=== PATIENT | male | born 1965 | race Caucasian/White ===

== ENCOUNTER 2017-05-11 00:23 | Emergency (ER) | payer BC, OTHER ==
[2017-05-11] MEDS ORDERED: Aspirin 81 MG Tab.Chew PO ONE (00:25)
[2017-05-11] MEDS ORDERED: Sodium Chloride 0.9% 1,000 ML IV ONE (00:25)
--- NOTE | 2017-05-11 00:27 | EDM.PDOC ---
ED HPI GENERAL MEDICAL PROBLEM - General Chief Complaint: Chest Pain Stated Complaint: CHEST PAIN AND FACE TINGLING Time Seen by Provider: 05/11/17 00:26 Source of Information: Reports: Patient - History of Present Illness INITIAL COMMENTS - FREE TEXT/NARRATIVE: HISTORY AND PHYSICAL: History of present illness: [Patient presents with chest pain throughout the day maximally 5 out of 10, at current he has 0 out of 10 pain he came at his 's urging. 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 Later on after lunch he again had some chest discomfort and took Tums this seemed to alleviate the discomfort. There is no association of pain with exertion no association with shortness of breath or diaphoresis tonight he was watching TV and noticed some left facial tingling as well as a tingle in the left arm and hence he presents as such He has not seen a primary care provider in some time he denies chronic illness disease or medications ] Review of systems: As per history of present illness and below otherwise all systems reviewed and negative. Past medical history: As per history of present illness and as reviewed below otherwise noncontributory. Surgical history: As per history of present illness and as reviewed below otherwise noncontributory. Social history: No reported history of drug or alcohol abuse. Family history: As per history of present illness and as reviewed below otherwise noncontributory. Physical exam: HEENT: Atraumatic, normocephalic, pupils reactive, negative for conjunctival pallor or scleral icterus, mucous membranes moist, throat clear, neck supple, nontender, trachea midline. Lungs: Clear to auscultation, breath sounds equal bilaterally, chest nontender. Heart: S1S2, regular, negative for clicks, rubs, or JVD. Abdomen: Soft, nondistended, nontender. Negative for masses or hepatosplenomegaly. Negative for costovertebral tenderness. Pelvis: Stable nontender. Genitourinary: Deferred. Rectal: Deferred. Extremities: Atraumatic, negative for cords or calf pain. Neurovascular unremarkable. Neuro: Awake, alert, oriented. Cranial nerves II through XII unremarkable. Cerebellum unremarkable. Motor and sensory unremarkable throughout. Exam nonfocal. Diagnostics: []Lab as below EKG Chest 1 view Therapeutics: []Saline bolus Aspirin 324 mg chewable 0.4 sublingual nitroglycerin ordered per protocol but not provided as 0 out of 10 pain Patient is offered observation admission to follow cardiac enzymes he refuses at this time Impression: []Chest pain resolved Facial tingling resolved GERD symptoms Definitive disposition and diagnosis as appropriate pending reevaluation and review of above. Left Upper Chest Pain Score (Numeric/FACES): 1 - Related Data Allergies Allergy/AdvReac Type Severity Reaction Status Date / Time No Known Allergies Allergy Verified 05/11/17 00:30 Home Meds: Home Meds . [No Known Home Meds] 05/11/17 [History] ED ROS GENERAL - Review of Systems Review Of Systems: ROS reveals no pertinent complaints other than HPI. ED EXAM, GENERAL - Physical Exam Exam: See Below Course - Vital Signs Last Recorded V/S: Last Vital Signs Temp 98.6 F 05/11/17 00:26 Pulse 107 H 05/11/17 00:26 Resp 12 05/11/17 00:26 BP 147/75 H 05/11/17 00:26 Pulse Ox 95 05/11/17 00:26 - Orders/Labs/Meds Orders: Active Orders 24 hr Category Date Time Status EKG Documentation Completion [RC] STAT Care 05/11/17 00:34 Active Chest 1V Frontal [CR] Stat Exams 05/11/17 00:25 Taken Nitroglycerin [Nitrostat] Med 05/11/17 00:31 Active 0.4 mg SL Q5M PRN Medication Orders Nitroglycerin (Nitrostat) 0.4 mg SL Q5M PRN PRN Reason: Chest Pain Labs: Laboratory Tests 05/11/17 05/11/17 05/11/17 Range/Units 00:40 00:40 01:00 WBC 5.53 (4.0-11.0) K/uL RBC 5.47 (4.50-5.90) M/uL Hgb 15.7 (13.0-17.0) g/dL Hct 47.0 (38.0-50.0) % MCV 85.9 (80.0-98.0) fL MCH 28.7 (27.0-32.0) pg MCHC 33.4 (31.0-37.0) g/dL RDW Std Deviation 41.4 (28.0-62.0) fl RDW Coeff of Deysi 13 (11.0-15.0) % Plt Count 158 (150-400) K/uL MPV 11.60 (7.40-12.00) fL Neut % (Auto) 54.3 (48.0-80.0) % Lymph % (Auto) 32.0 (16.0-40.0) % [place] % (Auto) 9.8 (0.0-15.0) % Eos % (Auto) 3.4 (0.0-7.0) % Baso % (Auto) 0.5 (0.0-1.5) % Neut # (Auto) 3.0 (1.4-5.7) K/uL Lymph # (Auto) 1.8 (0.6-2.4) K/uL [place] # (Auto) 0.5 (0.0-0.8) K/uL Eos # (Auto) 0.2 (0.0-0.7) K/uL Baso # (Auto) 0.0 (0.0-0.1) K/uL Nucleated RBC % 0.0 /100WBC Nucleated RBCs # 0 K/uL Sodium 142 (136-146) mmol/L Potassium 4.0 (3.5-5.1) mmol/L Chloride 109 (98-110) mmol/L Carbon Dioxide 23 (21-31) mmol/L BUN 24 H (6.0-23.0) mg/dL Creatinine 0.9 (0.6-1.5) mg/dL Est Cr Clr Drug Dosing 96.01 mL/min Estimated GFR (MDRD) > 60.0 ml/min Glucose 163 H (60-110) mg/dL Calcium 9.1 (8.8-10.8) mg/dL Total Bilirubin 1.1 (0.1-1.5) mg/dL AST 21 (5-40) IU/L ALT 30 (8-54) IU/L Alkaline Phosphatase 80 (40-150) Troponin I < 0.10 (0.0-0.29) NG/ML Total Protein 7.1 (6.0-8.0) g/dL Albumin 4.1 (3.5-5.0) g/dL Globulin 3.0 (2.0-3.5) g/dL Albumin/Globulin Ratio 1.4 (1.3-2.8) Amylase 54 (10-90) U/L Lipase 41 (7-80) U/L Urine Color YELLOW Urine Appearance CLEAR Urine pH 6.0 (5.0-8.0) Ur Specific [place] 1.020 (1.001-1.035) Urine Protein NEGATIVE (NEGATIVE) mg/dL Urine Glucose (UA) NEGATIVE (NEGATIVE) mg/dL Urine Ketones TRACE H (NEGATIVE) mg/dL Urine Occult Blood SMALL H (NEGATIVE) Urine Nitrite NEGATIVE (NEGATIVE) Urine Bilirubin NEGATIVE (NEGATIVE) Urine Urobilinogen 1.0 (<2.0) EU/dL Ur Leukocyte Esterase NEGATIVE (NEGATIVE) Urine RBC 0-2 (0-2/HPF) Urine WBC 0-1 (0-5/HPF) Ur Epithelial Cells NOT SEEN (NONE-FEW) Urine Bacteria RARE (NEGATIVE) Meds: Medications Generic Name Dose Route Start Last Admin Trade Name Freq PRN Reason Stop Dose Admin Nitroglycerin 0.4 mg 05/11/17 00:31 Nitrostat SL Q5M PRN Chest Pain Discontinued Medications Generic Name Dose Route Start Last Admin Trade Name Freq PRN Reason Stop Dose Admin Aspirin 324 mg 05/11/17 00:25 05/11/17 00:43 Aspirin PO 05/11/17 00:26 324 mg ONETIME ONE Administration Sodium Chloride 1,000 mls @ 999 mls/hr 05/11/17 00:25 Normal Saline IV 05/11/17 01:25 STAT ONE Departure - Departure Time of Disposition: 01:32 Disposition: Home, Self-Care 01 Condition: Good Clinical Impression: Atypical chest pain - Discharge Information Referrals: PCP,None [Primary Care Provider] - Forms: ED Department Discharge Additional Instructions: Return if symptoms persist or worsen Follow-up with primary care provider within 2 weeks, consider cardiac stress testing with your provider The following information is given to patients seen in the emergency department who are being discharged to home. This information is to outline your options for follow-up care. We provide all patients seen in our emergency department with a follow-up referral. The need for follow-up, as well as the timing and circumstances, are variable depending upon the specifics of your emergency department visit. If you don't have a primary care physician on staff, we will provide you with a referral. We always advise you to contact your personal physician following an emergency department visit to inform them of the circumstance of the visit and for follow-up with them and/or the need for any referrals to a consulting specialist. The emergency department will also refer you to a specialist when appropriate. This referral assures that you have the opportunity for follow-up care with a specialist. All of these measure are taken in an effort to provide you with optimal care, which includes your follow-up. Under all circumstances we always encourage you to contact your private physician who remains a resource for coordinating your care. When calling for follow-up care, please make the office aware that this follow-up is from your recent emergency room visit. If for any reason you are refused follow-up, please contact the [facility] emergency department at and asked to speak to the emergency department charge nurse. - My Orders Last 24 Hours: My Active Orders 05/11/17 00:25 Chest 1V Frontal [CR] Stat 05/11/17 00:31 Nitroglycerin [Nitrostat] 0.4 mg SL Q5M PRN 05/11/17 00:34 EKG Documentation Completion [RC] STAT - Assessment/Plan Last 24 Hours: My Active Orders 05/11/17 00:25 Chest 1V Frontal [CR] Stat 05/11/17 00:31 Nitroglycerin [Nitrostat] 0.4 mg SL Q5M PRN 05/11/17 00:34 EKG Documentation Completion [RC] STAT
[2017-05-11] MEDS ORDERED: Nitroglycerin 0.4 MG Tab.SL SL PRN (00:31)
[2017-05-11 01:12] LABS: CHLORIDE,CL 109 mmol/L (98-110); SODIUM,NA 142 mmol/L (136-146)
--- NOTE | 2017-05-12 15:16 | CR ---
EXAM DATE: 05/11/17 PATIENT'S AGE: 51 Patient: DI ARNDT Facility: [place], [place] Site . Site : 1965 Study: XRay Chest [id number] 12:42:36 AM Ordering Physician: Doctor Goodman Final Report: INDICATION: Chest pain. TECHNIQUE: Chest radiograph 1 view COMPARISON: None FINDINGS: Cardiovascular and mediastinum: The heart silhouette is normal in size and morphology. The mediastinum is normal in appearance. Lungs and pleural spaces: Both lungs are unremarkable in appearance. No sign of pleural effusion seen. No pneumothorax is identified. Bones and soft tissues: No significant findings. IMPRESSION: 1. No acute cardiopulmonary disease is seen. Dictated by Kumar Escobedo MD @ 05/11/2017 1:02:00 AM Dictated by: Kumar Escobedo MD @ 05/11/2017 01:02:05 (Electronic Signature) Report Signed by Proxy. ELIAS
== END 2017-05-11 01:51 | disposition home or self-care (01) ==
LOC: MW.ED 00:23
DX: R07.89 Other chest pain (principal)
CPT/HCPCS: 71010; 80053; 81001; 82150; 83690; 84484; 85025; 93005; 96360; 99285; A9270; J7040; 99283

== ENCOUNTER 2017-05-12 15:55 | Emergency (ER) | payer BC ==
--- NOTE | 2017-05-12 16:06 | EDM.PDOC ---
ED HPI GENERAL MEDICAL PROBLEM - General Chief Complaint: Chest Pain Stated Complaint: CHEST PAIN Time Seen by Provider: 05/12/17 16:02 Source of Information: Reports: Patient History Limitations: Reports: No Limitations - History of Present Illness INITIAL COMMENTS - FREE TEXT/NARRATIVE: History of present illness: []Patient returns with another episode of chest pain that began around 1:30 this afternoon when his left chest while he was working described as burning and tingling going up his left neck. He denies any shortness of breath, sweating , dizziness or lightheadedness or syncope. Pain is noted to be 3/10 at its worst and report is a 1/10 here in the ED. Review of systems: As per history of present illness and below otherwise all systems reviewed and negative. Past medical history: As per history of present illness and as reviewed below otherwise noncontributory. Surgical history: As per history of present illness and as reviewed below otherwise noncontributory. Social history: No reported history of drug or alcohol abuse. Family history: As per history of present illness and as reviewed below otherwise noncontributory. Physical exam: General: Well developed, well nourished in NAD HEENT: Atraumatic, normocephalic, pupils reactive, negative for conjunctival pallor or scleral icterus, mucous membranes moist, throat clear, neck supple, nontender, trachea midline. Lungs: Clear to auscultation, breath sounds equal bilaterally, chest nontender. Heart: S1S2, regular, negative for clicks, rubs, or JVD. Abdomen: Soft, nondistended, nontender. Negative for masses or hepatosplenomegaly. Negative for costovertebral tenderness. Pelvis: Stable nontender. Genitourinary: Deferred. Rectal: Deferred. Extremities: Atraumatic, negative for cords or calf pain. Neurovascular unremarkable. Neuro: Awake, alert, oriented. Cranial nerves II through XII unremarkable. Cerebellum unremarkable. Motor and sensory unremarkable throughout. Exam nonfocal. Diagnostics: []Troponin was done all normal Therapeutics: []Aspirin and nitroglycerin given Impression: []Chest pain likely GERD Plan: [] Definitive disposition and diagnosis as appropriate pending reevaluation and review of above. Chest Pain Score (Numeric/FACES): 4 - Related Data Allergies Allergy/AdvReac Type Severity Reaction Status Date / Time No Known Allergies Allergy Verified 05/12/17 15:58 Home Meds: Home Meds . [No Known Home Meds] 05/11/17 [History] Past Medical History - Past Health History Medical/Surgical History: Denies Medical/Surgical History - Infectious Disease History Infectious Disease History: Reports: Chicken Pox - Past Surgical History Musculoskeletal Surgical History: Reports: Other (See Below) Other Musculoskeletal Surgeries/Procedures:: plate in L leg above knee Social & Family History - Family History Family Medical History: Noncontributory - Tobacco Use Smoking Status *Q: Never Smoker Used Tobacco, but Quit: Yes Month Tobacco Last Used: 2014 - Caffeine Use Caffeine Use: Reports: Soda - Recreational Drug Use Recreational Drug Use: No ED ROS GENERAL - Review of Systems Review Of Systems: See Below (See history of present illness) ED EXAM, GENERAL - Physical Exam Exam: See Below (See history of present illness) Course - Vital Signs Last Recorded V/S: Last Vital Signs Temp 99.0 F 05/12/17 15:58 Pulse 83 05/12/17 17:14 Resp 18 05/12/17 17:14 BP 121/71 05/12/17 17:14 Pulse Ox 95 05/12/17 17:14 - Orders/Labs/Meds Orders: Active Orders 24 hr Category Date Time Status Nitroglycerin [Nitrostat] Med 05/12/17 16:27 Active 0.4 mg SL Q5M PRN Sodium Chloride 0.9% [Saline Flush] Med 05/12/17 16:59 Active 10 ml FLUSH ASDIRECTED PRN Sodium Chloride 0.9% [Saline Flush] Med 05/12/17 16:59 Active 2.5 ml FLUSH ASDIRECTED PRN Saline Lock Insert [OM.PC] Stat Oth 05/12/17 16:59 Ordered Medication Orders Nitroglycerin (Nitrostat) 0.4 mg SL Q5M PRN PRN Reason: Chest Pain Last Admin: 05/12/17 17:08 Dose: 0.4 mg Sodium Chloride (Saline Flush) 10 ml FLUSH ASDIRECTED PRN PRN Reason: Keep Vein Open Last Admin: 05/12/17 17:07 Dose: 10 ml Sodium Chloride (Saline Flush) 2.5 ml FLUSH ASDIRECTED PRN PRN Reason: Keep Vein Open Last Admin: 05/12/17 17:08 Dose: 2.5 ml Labs: Laboratory Tests 05/12/17 05/12/17 Range/Units 17:02 17:02 WBC 6.13 (4.0-11.0) K/uL RBC 5.30 (4.50-5.90) M/uL Hgb 15.2 (13.0-17.0) g/dL Hct 45.5 (38.0-50.0) % MCV 85.8 (80.0-98.0) fL MCH 28.7 (27.0-32.0) pg MCHC 33.4 (31.0-37.0) g/dL RDW Std Deviation 41.8 (28.0-62.0) fl RDW Coeff of Deysi 13 (11.0-15.0) % Plt Count 157 (150-400) K/uL MPV 11.70 (7.40-12.00) fL Neut % (Auto) 75.6 (48.0-80.0) % Lymph % (Auto) 16.3 (16.0-40.0) % [place] % (Auto) 7.0 (0.0-15.0) % Eos % (Auto) 0.8 (0.0-7.0) % Baso % (Auto) 0.3 (0.0-1.5) % Neut # (Auto) 4.6 (1.4-5.7) K/uL Lymph # (Auto) 1.0 (0.6-2.4) K/uL [place] # (Auto) 0.4 (0.0-0.8) K/uL Eos # (Auto) 0.1 (0.0-0.7) K/uL Baso # (Auto) 0.0 (0.0-0.1) K/uL Nucleated RBC % 0.0 /100WBC Nucleated RBCs # 0 K/uL Sodium 141 (136-146) mmol/L Potassium 4.1 (3.5-5.1) mmol/L Chloride 109 (98-110) mmol/L Carbon Dioxide 24 (21-31) mmol/L BUN 18 (6.0-23.0) mg/dL Creatinine 0.9 (0.6-1.5) mg/dL Est Cr Clr Drug Dosing TNP Estimated GFR (MDRD) > 60.0 ml/min Glucose 93 (60-110) mg/dL Calcium 9.4 (8.8-10.8) mg/dL Total Bilirubin 1.2 (0.1-1.5) mg/dL AST 19 (5-40) IU/L ALT 27 (8-54) IU/L Alkaline Phosphatase 60 (40-150) Troponin I < 0.10 (0.0-0.29) NG/ML Total Protein 6.9 (6.0-8.0) g/dL Albumin 4.2 (3.5-5.0) g/dL Globulin 2.7 (2.0-3.5) g/dL Albumin/Globulin Ratio 1.56 Meds: Medications Generic Name Dose Route Start Last Admin Trade Name Freq PRN Reason Stop Dose Admin Nitroglycerin 0.4 mg 05/12/17 16:27 05/12/17 17:08 Nitrostat SL 0.4 mg Q5M PRN Administration Chest Pain Sodium Chloride 10 ml 05/12/17 16:59 05/12/17 17:07 Saline Flush FLUSH 10 ml ASDIRECTED PRN Administration Keep Vein Open Sodium Chloride 2.5 ml 05/12/17 16:59 05/12/17 17:08 Saline Flush FLUSH 2.5 ml ASDIRECTED PRN Administration Keep Vein Open Discontinued Medications Generic Name Dose Route Start Last Admin Trade Name Freq PRN Reason Stop Dose Admin Aspirin 324 mg 05/12/17 16:27 05/12/17 17:06 Aspirin PO 05/12/17 16:28 324 mg ONETIME ONE Administration Departure - Departure Time of Disposition: 17:59 Disposition: Home, Self-Care 01 Condition: Good Clinical Impression: Chest pain Qualifiers: Chest pain type: unspecified Qualified Code(s): R07.9 - Chest pain, unspecified Referrals: PCP,None [Primary Care Provider] - Forms: ED Department Discharge Additional Instructions: The following information is given to patients seen in the emergency department who are being discharged to home. This information is to outline your options for follow-up care. We provide all patients seen in our emergency department with a follow-up referral. The need for follow-up, as well as the timing and circumstances, are variable depending upon the specifics of your emergency department visit. If you don't have a primary care physician on staff, we will provide you with a referral. We always advise you to contact your personal physician following an emergency department visit to inform them of the circumstance of the visit and for follow-up with them and/or the need for any referrals to a consulting specialist. The emergency department will also refer you to a specialist when appropriate. This referral assures that you have the opportunity for follow-up care with a specialist. All of these measure are taken in an effort to provide you with optimal care, which includes your follow-up. Under all circumstances we always encourage you to contact your private physician who remains a resource for coordinating your care. When calling for follow-up care, please make the office aware that this follow-up is from your recent emergency room visit. If for any reason you are refused follow-up, please contact the [facility] Emergency Department at and asked to speak to the emergency department charge nurse. Take a baby aspirin daily, trial of Prilosec twice a day for 2 weeks. Follow-up with primary care and/or cardiology. [facility] [address] [place] [id number] [facility] [address] [place]. [place] [address] [place] [id number] [phone] - My Orders Last 24 Hours: My Active Orders 05/12/17 16:27 Nitroglycerin [Nitrostat] 0.4 mg SL Q5M PRN 05/12/17 16:59 Sodium Chloride 0.9% [Saline Flush] 10 ml FLUSH ASDIRECTED PRN Sodium Chloride 0.9% [Saline Flush] 2.5 ml FLUSH ASDIRECTED PRN Saline Lock Insert [OM.PC] Stat - Assessment/Plan Last 24 Hours: My Active Orders 05/12/17 16:27 Nitroglycerin [Nitrostat] 0.4 mg SL Q5M PRN 05/12/17 16:59 Sodium Chloride 0.9% [Saline Flush] 10 ml FLUSH ASDIRECTED PRN Sodium Chloride 0.9% [Saline Flush] 2.5 ml FLUSH ASDIRECTED PRN Saline Lock Insert [OM.PC] Stat
[2017-05-12] MEDS ORDERED: Aspirin 81 MG Tab.Chew PO ONE (16:27)
[2017-05-12] MEDS ORDERED: Nitroglycerin 0.4 MG Tab.SL SL PRN (16:27)
[2017-05-12] MEDS ORDERED: Sodium Chloride 0.9% 10 ML Syringe FLUSH PRN (16:59)
[2017-05-12] MEDS ORDERED: Sodium Chloride 0.9% 2.5 ML Syringe FLUSH PRN (16:59)
[2017-05-12 17:39] LABS: CHLORIDE,CL 109 mmol/L (98-110); SODIUM,NA 141 mmol/L (136-146)
== END 2017-05-12 18:10 | disposition home or self-care (01) ==
LOC: MW.ED 15:55
DX: R07.9 Chest pain, unspecified (principal)
CPT/HCPCS: 36415; 80053; 84484; 85025; 93005; 99285; A9270; 99283

== ENCOUNTER 2017-06-27 09:29 | Day surgery (SDC) | payer BC ==
[~2017-06-27 09:29] MED LIST: Lactated Ringers 1,000 ML IV SCH; Lidocaine 2% 5 ML SDV ONE; Midazolam 1 MG/ML 2 ML SDV ONE; Propofol 200 MG/20 ML SDV ONE; fentaNYL 100 MCG/2 ML SDV ONE
--- NOTE | 2017-06-27 09:55 | PCM.PREANE ---
Preanesthetic Assessment - Anesthesia/Transfusion/Family Hx Anesthesia History: Prior Anesthesia Without Reaction Family History of Anesthesia Reaction: No Transfusion History: No Prior Transfusion(s) Intubation History: Unknown - Review of Systems General: No Symptoms Pulmonary: No Symptoms Cardiovascular: No Symptoms Gastrointestinal: Abdominal Pain Neurological: No Symptoms Other: Reports: None - Physical Assessment Height: 1.75 m Weight: 114.759 kg ASA Class: 2 Mental Status: Alert & Oriented x3 Airway Class: Mallampati = 2 Dentition: Reports: Normal Dentition Thyro-Mental Finger Breadths: 3 Mouth Opening Finger Breadths: 3 ROM/Head Extension: Full Lungs: Clear to Auscultation, Normal Respiratory Effort Cardiovascular: Regular Rate, Regular Rhythm - Allergies Allergies/Adverse Reactions: Allergies Allergy/AdvReac Type Severity Reaction Status Date / Time No Known Allergies Allergy Verified 05/12/17 15:58 - Blood Blood Available: No - Anesthesia Plan Pre-Op Medication Ordered: None - Acknowledgements Anesthesia Type Planned: MAC Pt an Appropriate Candidate for the Planned Anesthesia: Yes Alternatives and Risks of Anesthesia Discussed w Pt/Guardian: Yes Pt/Guardian Understands and Agrees with Anesthesia Plan: Yes PreAnesthesia Questionnaire - Past Health History Medical/Surgical History: Denies Medical/Surgical History HEENT History: Reports: Other (See Below) Other HEENT History: wears glasses Cardiovascular History: Reports: None, Other (See Below) (coronary angiogram 11/23 was normal) Respiratory History: Reports: None Gastrointestinal History: Reports: Other (See Below) Other Gastrointestinal History: epigastric pain Musculoskeletal History: Reports: Fracture Endocrine/Metabolic History: Reports: Obesity/BMI 30+ - Infectious Disease History Infectious Disease History: Reports: Chicken Pox - Past Surgical History Head Surgeries/Procedures: Reports: None Cardiovascular Surgical History: Reports: Other (See Below) Other Cardiovascular Surgeries/Procedures: coronary angiogram, neg results Musculoskeletal Surgical History: Reports: Other (See Below) Other Musculoskeletal Surgeries/Procedures:: plate in L leg above knee - SUBSTANCE USE Smoking Status *Q: Never Smoker (quit chewing 2 years ago) Tobacco Use Within Last Twelve Months: Snuff/Dip Recreational Drug Use History: No - HOME MEDS Home Medications: Home Meds Nitroglycerin 0.4 mg SL ASDIRECTED PRN #1 bottle 05/12/17 [Rx] Omeprazole 20 mg PO DAILY 06/24/17 [History] - CURRENT (IN HOUSE) MEDS Current Meds: Current Medications Lactated Ringer's (Ringers, Lactated) 1,000 mls @ 125 mls/hr IV ASDIRECTED FRANCES Discontinued Medications Fentanyl (Sublimaze) Confirm Administered Dose 100 mcg .ROUTE .STK-MED ONE Stop: 06/27/17 08:28 Lidocaine (Xylocaine-Mpf 2%) Confirm Administered Dose 5 ml .ROUTE .STK-MED ONE Stop: 06/27/17 08:28 Midazolam HCl (Versed 1 Mg/Ml) Confirm Administered Dose 2 mg .ROUTE .STK-MED ONE Stop: 06/27/17 08:28 Propofol (Diprivan 20 Ml) Confirm Administered Dose 400 mg .ROUTE .STK-MED ONE Stop: 06/27/17 08:28
[2017-06-27] MEDS ORDERED: Propofol 200 MG/20 ML SDV ONE (11:36)
[2017-06-27] MEDS ORDERED: Lactated Ringers 1,000 ML IV SCH (12:00)
--- NOTE | 2017-06-27 12:04 | PCM.OPNOTE ---
- General Post-Op/Procedure Note Date of Surgery/Procedure: 06/27/17 Operative Procedure(s): Esophagogastroduodenoscopy with biopsy. Colonoscopy with cold transverse colon and descending colon, polypectomies. Pre Op Diagnosis: Epigastric pain. Desire for colorectal cancer screening. Post-Op Diagnosis: Mild gastritis. Transverse and descending colon polyps. Sigmoid diverticulosis. Anesthesia Technique: MAC (ASA II) Primary Surgeon: Endy Haq Condition: Good Free Text/Narrative:: Dictation [id number] CPT CODE 11064/[id number]
--- NOTE | 2017-06-27 12:13 | PCM.POSTAN ---
POST ANESTHESIA ASSESSMENT - MENTAL STATUS Mental Status: Alert, Oriented - RESPIRATORY Respiratory Status: Respiratory Rate WNL, Airway Patent, O2 Saturation Stable - CARDIOVASCULAR CV Status: Pulse Rate WNL, Blood Pressure Stable - GASTROINTESTINAL GI Status: No Symptoms - POST OP HYDRATION Hydration Status: Adequate & Stable
--- NOTE | 2017-06-27 12:13 | PCM48HPAN ---
Post Anesthesia Note - EVALUATION WITHIN 48HRS OF ANESTHETIC Vital Signs in Normal Range: Yes Patient Participated in Evaluation: Yes Respiratory Function Stable: Yes Airway Patent: Yes Cardiovascular Function Stable: Yes Hydration Status Stable: Yes Pain Control Satisfactory: Yes Nausea and Vomiting Control Satisfactory: Yes Mental Status Recovered: Yes
--- NOTE | 2017-06-27 13:13 | OR ---
SURGEON: Endy Haq M.D. DATE OF PROCEDURE: 06/27/2017 OPERATION PERFORMED: Esophagogastroduodenoscopy with biopsy. ANESTHESIA: MAC. ASA CLASSIFICATION: II. PREOPERATIVE DIAGNOSIS: Left-sided abdominal pain. POSTOPERATIVE DIAGNOSIS: Mild gastritis. DESCRIPTION OF PROCEDURE: The patient was taken to the endoscopy room, positioned on the endoscopy table in the supine position. Time-out was called for appropriate identification of the patient and procedure. Monitored anesthesia care was provided. A bite block was placed between the patient's teeth. The gastroscope was inserted through the bite block into the oropharynx and advanced without difficulty through the esophagus and stomach into the duodenum where examination was carried out in a retrograde fashion. The duodenum shows no acute inflammatory changes or ulcerations. The stomach does show a mild gastritis. No acute ulcerations were noted. Biopsies of the antrum were obtained to look for the presence of Helicobacter pylori. The gastroscope was retroflexed to visualize the proximal stomach. No significant hiatal hernia was noted. No polyps were encountered in the stomach and there were no ulcerations noted proximally. The gastroscope was then straightened and slowly withdrawn aspirating the stomach as the scope was removed. The greater and lesser curvatures were carefully visualized. No lesions were identified. The GE junction was well defined and shows no acute inflammatory changes. The esophagus demonstrates good contractility. No mid or proximal lesions were identified. The vocal cords were visualized as the scope was withdrawn and noted to move symmetrically. The gastroscope was then removed with the patient having tolerated this portion of the procedure well. Following colonoscopy, he was taken to recovery room in stable condition. SANDRA / LIVIA /[id number]
--- NOTE | 2017-06-27 16:43 | OR ---
SURGEON: Endy Haq M.D. DATE OF PROCEDURE: 06/27/2017 OPERATION PERFORMED: Colonoscopy with cold transverse colon and descending colon polypectomy. ANESTHESIA: MAC. ASA CLASSIFICATION: II. PREOPERATIVE DIAGNOSIS: Desire for colorectal cancer screening. POSTOPERATIVE DIAGNOSES: 1. Transverse colon polyp. 2. Descending colon polyp. 3. Sigmoid diverticulosis. DESCRIPTION OF PROCEDURE: With the patient having completed esophagogastroduodenoscopy, he was now positioned in the left lateral decubitus position. The colonoscope was inserted into the rectum and advanced with minimal difficulty to the cecum, where the colonoscope was retroflexed to visualize the ascending colon from below. The colonoscope was then straightened and slowly withdrawn. The cecum, ascending colon, hepatic flexure, proximal mid transverse colon showed no tumors, polyps, diverticula, or angiodysplastic changes. One small polyp was encountered in the distal transverse colon and removed with the cold biopsy forceps. A second polyp was encountered just distal to the splenic flexure and also removed with the cold biopsy forceps. The remainder of the descending colon showed no tumors, polyps, diverticula, or angiodysplastic changes. The sigmoid colon demonstrates numerous small diverticula. No stricture, spasm, or bleeding was noted. Once the colonoscope was withdrawn to the rectum, it was retroflexed to visualize the anal orifice from above. No tumors or polyps were seen and there were no acute hemorrhoidal changes. The colonoscope was then straightened, the rectum aspirated, and the colonoscope removed. The patient tolerated the procedure well and was taken to recovery room in stable condition. SANDRA / LIVIA /[id number]
== END 2017-06-27 12:30 | disposition home or self-care (01) ==
LOC: MW.SDS 09:29
PROVIDERS: ATTEND Surgery
DX: K29.50 Unspecified chronic gastritis without bleeding (principal); D12.3 Benign neoplasm of transverse colon; D12.4 Benign neoplasm of descending colon; K57.30 Diverticulosis of large intestine without perforation or abscess without bleeding; M21.40 Flat foot [pes planus] (acquired), unspecified foot; M21.6X9 Other acquired deformities of unspecified foot; T16.2XXA Foreign body in left ear, initial encounter; Z98.890 Other specified postprocedural states; M20.5X2 Other deformities of toe(s) (acquired), left foot; M20.5X1 Other deformities of toe(s) (acquired), right foot; M72.2 Plantar fascial fibromatosis; M67.00 Short Achilles tendon (acquired), unspecified ankle; E66.9 Obesity, unspecified; Z68.37 Body mass index [BMI] 37.0-37.9, adult; Z79.899 Other long term (current) drug therapy
CPT/HCPCS: 43239; 45380; J2250; J3010; J7120; 88305; J2704

== ENCOUNTER 2017-07-07 06:46 | Day surgery (SDC) | payer BC ==
[~2017-07-07 06:46] MED LIST changes: -Lidocaine 2% 5 ML SDV ONE; -Midazolam 1 MG/ML 2 ML SDV ONE; -Propofol 200 MG/20 ML SDV ONE; +cefOXitin 2 GM in Premix Bag 1 BAG IV ONE; -fentaNYL 100 MCG/2 ML SDV ONE
--- NOTE | 2017-07-07 07:15 | PCM.PREANE ---
Preanesthetic Assessment - Anesthesia/Transfusion/Family Hx Anesthesia History: Prior Anesthesia Without Reaction Family History of Anesthesia Reaction: No Transfusion History: No Prior Transfusion(s) Intubation History: Unknown - Review of Systems General: No Symptoms Pulmonary: No Symptoms Cardiovascular: No Symptoms Gastrointestinal: No Symptoms Neurological: No Symptoms Other: Reports: None - Physical Assessment NPO Status Date: 07/06/17 Height: 1.75 m Weight: 114.759 kg ASA Class: 2 Mental Status: Alert & Oriented x3 Airway Class: Mallampati = 1 Dentition: Reports: Normal Dentition ROM/Head Extension: Full Lungs: Clear to Auscultation, Normal Respiratory Effort Cardiovascular: Regular Rate, Regular Rhythm - Allergies Allergies/Adverse Reactions: Allergies Allergy/AdvReac Type Severity Reaction Status Date / Time No Known Allergies Allergy Verified 07/02/17 09:08 - Acknowledgements Anesthesia Type Planned: General Anesthesia Pt an Appropriate Candidate for the Planned Anesthesia: Yes Alternatives and Risks of Anesthesia Discussed w Pt/Guardian: Yes Pt/Guardian Understands and Agrees with Anesthesia Plan: Yes Additional Comments: BMI=38 PreAnesthesia Questionnaire - Past Health History Medical/Surgical History: Denies Medical/Surgical History HEENT History: Reports: Other (See Below) Other HEENT History: wears glasses Cardiovascular History: Reports: None, Other (See Below) (coronary angiogram 11/23 was normal) Respiratory History: Reports: None Gastrointestinal History: Reports: Other (See Below) Other Gastrointestinal History: epigastric pain Musculoskeletal History: Reports: Fracture Endocrine/Metabolic History: Reports: Obesity/BMI 30+ - Infectious Disease History Infectious Disease History: Reports: Chicken Pox - Past Surgical History Head Surgeries/Procedures: Reports: None Cardiovascular Surgical History: Reports: Other (See Below) Other Cardiovascular Surgeries/Procedures: coronary angiogram GI Surgical History: Reports: Colonoscopy, EGD Musculoskeletal Surgical History: Reports: Other (See Below) Other Musculoskeletal Surgeries/Procedures:: plate in L leg above knee - SUBSTANCE USE Smoking Status *Q: Never Smoker Tobacco Use Within Last Twelve Months: Snuff/Dip Recreational Drug Use History: No - HOME MEDS Home Medications: Home Meds Nitroglycerin 0.4 mg SL ASDIRECTED PRN #1 bottle 05/12/17 [Rx] Omeprazole 20 mg PO DAILY 06/24/17 [History] - CURRENT (IN HOUSE) MEDS Current Meds: Current Medications Lactated Ringer's (Ringers, Lactated) 1,000 mls @ 125 mls/hr IV ASDIRECTED FRANCES Discontinued Medications Cefoxitin Sodium 2 gm/ Premix 50 mls @ 100 mls/hr IV ONETIME ONE Stop: 07/07/17 06:29
[2017-07-07] MEDS ORDERED: Bupivacaine 0.5% 10 ML SDV ONE (07:20)
[2017-07-07] MEDS ORDERED: ceFAZolin 1 GM Vial ONE (07:21)
[2017-07-07] MEDS ORDERED: Lidocaine 2% 5 ML SDV ONE (07:26)
[2017-07-07] MEDS ORDERED: Propofol 200 MG/20 ML SDV ONE (07:26)
[2017-07-07] MEDS ORDERED: Midazolam 1 MG/ML 2 ML SDV ONE (07:27)
[2017-07-07] MEDS ORDERED: fentaNYL 100 MCG/2 ML SDV ONE (07:27)
[2017-07-07] MEDS ORDERED: Neostigmine Methylsulfate 1 MG/ML 5 ML Syringe ONE (07:29)
[2017-07-07] MEDS ORDERED: Ondansetron 4 MG/2 ML SDV ONE (07:29)
[2017-07-07] MEDS ORDERED: Glycopyrrolate 0.2 MG/ML SDV ONE (07:29)
[2017-07-07] MEDS ORDERED: Ketorolac 30 MG/ML SDV ONE (07:29)
[2017-07-07] MEDS ORDERED: Rocuronium 10 MG/ML 10 ML Syringe ONE (07:29)
[2017-07-07] MEDS ORDERED: ePHEDrine 50 MG/ML SDV ONE (08:19)
[2017-07-07] MEDS ORDERED: HYDROmorphone 2 MG/ML Syringe IVPUSH ONE (08:26)
[2017-07-07] MEDS ORDERED: fentaNYL 100 MCG/2 ML SDV IVPUSH PRN (08:26)
[2017-07-07] MEDS ORDERED: Lactated Ringers 1,000 ML IV SCH (09:00)
[2017-07-07] MEDS ORDERED: Morphine 10 MG/ML Syringe IVPUSH PRN (09:00)
[2017-07-07] MEDS ORDERED: Acetaminophen/HYDROcodone 325-5 MG Tab PO PRN (09:00)
--- NOTE | 2017-07-07 09:02 | PCM.OPNOTE ---
- General Post-Op/Procedure Note Date of Surgery/Procedure: 07/07/17 Operative Procedure(s): Laparoscopic cholecystectomy Pre Op Diagnosis: Chronic right upper quadrant pain. Abnormal hepatobiliary scan. Post-Op Diagnosis: Chronic cholecystitis Anesthesia Technique: General ET Tube (ASA II) Primary Surgeon: Endy Haq Fluid Replacement, Intraop: 1,500 EBL in mLs: 10 Condition: Good Free Text/Narrative:: Dictation [id number] CPT CODE 18342
--- NOTE | 2017-07-07 10:54 | OR ---
SURGEON: Endy Haq M.D. DATE OF PROCEDURE: 07/07/2017 OPERATION PERFORMED: Laparoscopic cholecystectomy. ANESTHESIA: General endotracheal. ASA CLASSIFICATION: II. PREOPERATIVE DIAGNOSIS: Chronic right upper quadrant pain, abnormal hepatobiliary scan. POSTOPERATIVE DIAGNOSIS: Chronic cholecystitis. ESTIMATED BLOOD LOSS: 10 mL. INTRAOPERATIVE FLUID REPLACEMENT: 1500 mL of crystalloid. DESCRIPTION OF PROCEDURE: The patient was taken to the operating room and placed on the operating table in the supine position. Time-out was called for appropriate identification of the patient and procedure. Thigh-high TEDs and sequential compression boots were placed. Following satisfactory attainment of general endotracheal anesthesia, a Elizabeth catheter was placed in the patient's urinary bladder. The abdomen was prepped with DuraPrep solution. Sterile drapes were applied. The skin just above the umbilicus was infiltrated with 0.5% Marcaine solution. The skin incision was made and deepened through the subcutaneous tissue obtaining hemostasis with the use of electrocautery. The Veress needle was introduced into the peritoneal cavity. Saline drop test was positive. Carbon dioxide pneumoperitoneum was established with the relief set at 13 cm of water. Once we had a satisfactory pneumoperitoneum, the patient was positioned with his feet down and rolled to the left. A 5 mm camera and port had been placed through the supraumbilical incision. Now, under camera vision, 12 mm subxiphoid, 5 mm midclavicular, and 5 mm anterior axillary ports were placed. Each incision had preemptively been infiltrated with 0.5% Marcaine solution. The gallbladder was grasped and adhesions were taken down. The cholecystohepatic triangle was dissected free obtaining a good critical view serially identifying the cystic duct and cystic artery. Each structure was hemo-clipped and divided with the laparoscopic Metzenbaum scissor. The gallbladder was then dissected away from its bed using electrocautery. No bile leak was noted. There was no significant bleeding. The gallbladder was then placed in an Endopouch. The right upper quadrant was irrigated with several 100 mL of saline solution and all fluid was aspirated. Surgicel was placed into the bed of the gallbladder. The right hemidiaphragm was then irrigated with 250 mL of saline containing 20 mL of 0.5% Marcaine solution. That solution was left in place. Under camera vision, the Endopouch containing the gallbladder was removed through the subxiphoid port. Under camera vision, 5 mm midclavicular, and 5 mm anterior axillary ports were removed and finally the supraumbilical camera and port were removed. The patient was now positioned flat on the operating table. The subxiphoid and supraumbilical incisions were closed in 2 layers approximating the subcutaneous tissue with 3-0 Vicryl and the skin with subcuticular 4-0 Monocryl. The midclavicular and anterior axillary incisions were closed with subcuticular 4-0 Monocryl. All incisions were Steri-Stripped and dressed with sterile Tegaderm pads. Sponge, needle, and instrument counts were all correct. Elizabeth catheter was removed prior to emergence from anesthesia. Following emergence from anesthesia and extubation, the patient was taken to recovery room in stable condition. SANDRA BHAKTA /[id number]
== END 2017-07-07 10:30 | disposition home or self-care (01) ==
LOC: MW.SDS 06:46
PROVIDERS: ATTEND Surgery
DX: K81.1 Chronic cholecystitis (principal); M21.40 Flat foot [pes planus] (acquired), unspecified foot; M21.6X9 Other acquired deformities of unspecified foot; M20.5X1 Other deformities of toe(s) (acquired), right foot; M20.5X2 Other deformities of toe(s) (acquired), left foot; E66.9 Obesity, unspecified; Z68.37 Body mass index [BMI] 37.0-37.9, adult; Z98.890 Other specified postprocedural states; Z79.899 Other long term (current) drug therapy; Z82.3 Family history of stroke; Z82.41 Family history of sudden cardiac death; Z82.49 Family history of ischemic heart disease and other diseases of the circulatory system
CPT/HCPCS: 47562; A9270; J1885; J2250; J2405; J3010; J0690; J2704

== ENCOUNTER 2019-11-28 10:51 | Emergency (ER) | payer BC ==
[2019-11-28] MEDS ORDERED: Tetracaine HCl/PF 0.5% 4 ML Bottle EYEBOTH ONE (11:15)
[2019-11-28] MEDS ORDERED: Tetracaine HCl/PF 0.5% 4 ML Bottle ONE (11:17)
[2019-11-28] MEDS ORDERED: Diphtheria,Pertussis(Acell),Tetanus Vaccine 0.5 ML Syringe IM ONE (11:32)
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
--- NOTE | 2019-11-28 13:17 | CT ---
CT orbits Technique: Multiple axial sections were obtained through the orbits. Intravenous contrast was not utilized. Findings: Small metallic foreign body is seen superficial to the left globe along the lateral aspect measuring 2.3 mm. Mild amount of surrounding soft tissue swelling is seen. No foreign body is seen within either globe. Retro-orbital structures are normal. Mild mucosal thickening seen within both maxillary sinuses. No air-fluid levels are seen within the paranasal sinuses. No mastoid sinus findings are seen. No acute facial bone fracture is seen. Impression: 1. Mild soft tissue swelling within the left periorbital region. Small superficial metallic foreign body projected within this area of soft tissue swelling external to the globe in a mildly lateral position. 2. Mild mucosal thickening within both maxillary sinuses most likely chronic. Diagnostic code #3 Study was dictated in MDT
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
== END 2019-11-28 13:58 | disposition home or self-care (01) ==
LOC: MW.ED 10:51
DX: T15.92XA Foreign body on external eye, part unspecified, left eye, initial encounter (principal); E66.9 Obesity, unspecified; Z68.36 Body mass index [BMI] 36.0-36.9, adult; Z23 Encounter for immunization
CPT/HCPCS: 65210; 70480; 70480-26; 90471; 90715; 99283; 99283-25

== ENCOUNTER 2021-05-14 20:47 | Emergency (ER) | payer BC ==
--- NOTE | 2021-05-14 20:58 | EDM.PDOC ---
<Omkar Hurley - Last Filed: 05/15/21 01:21> ED HPI GENERAL MEDICAL PROBLEM - General Chief Complaint: Respiratory Problem Stated Complaint: POSSIBLE PNEUMONIA Time Seen by Provider: 05/14/21 20:58 - History of Present Illness INITIAL COMMENTS - FREE TEXT/NARRATIVE: Patient was signed out to me by Deborah Rosario pending Covid and x-ray at 10 PM. I promptly performed a detailed physical examination and my examination was done after ED treatments were initiated by the signout provider. Patient has been under the care of previous provider up until this point. Patient was sitting comfortably in the chair and vitals continue to remain normal. Pulse oximetry with good waveform was 95 to 96% on room air. Laboratory: Covid is positive. Influenza is negative. The radiological images were viewed by myself along with reading the report from the radiologist. Chest x-ray does not reveal any acute cardiopulmonary process other than bilateral opacities consistent with COVID-19 pneumonia. After labs and imaging I did reevaluate the patient. The patient's oxygen continued to remain normal and was saturating appropriately and speaking in full sentences. I did discuss results with the patient. I discussed Covid precautions and discussed that he is a candidate for [facility]. At this time he was uncertain. However he agreed to have his information faxed over and he will make a decision. He was amenable to discharge at this time and had no further questions DISPOSITION: The patient was discharged home in stable condition. The patient will follow up with primary care physician after isolation. CONDITION: Fair PROCEDURES: None FINAL IMPRESSION(S)/DIAGNOSES: 1. Acute COVID-19 pneumonia Omkar Hurley M.D. - Related Data Allergies Allergy/AdvReac Type Severity Reaction Status Date / Time No Known Allergies Allergy Verified 11/28/19 11:10 Home Meds: Home Meds . [No Known Home Meds] 05/14/21 [History] ED ROS GENERAL - Review of Systems Review Of Systems: See Below ED EXAM, GENERAL - Physical Exam Exam: See Below Departure - Departure Time of Disposition: 22:30 Disposition: Home, Self-Care 01 Condition: Fair Clinical Impression: Pneumonia due to COVID-19 virus - Discharge Information *PRESCRIPTION DRUG MONITORING PROGRAM REVIEWED*: No *COPY OF PRESCRIPTION DRUG MONITORING REPORT IN PATIENT NATHAN: No Instructions: How to Protect Yourself and Others - [facility] (01/19/2021), 10 Things You Can Do to Manage Your COVID-19 Symptoms at Home - [facility] (12/22/2020), Symptoms of COVID-19 - [facility] (07/31/2020), COVID-19: Quarantine vs. Isolation - [facility] (05/25/2020) Referrals: Oleg Lee MD [Primary Care Provider] - Forms: ED Department Discharge Additional Instructions: You should take acetaminophen 500-1000 mg every 6 hours as needed for fever and muscle aches. Please drink plenty of fluids and get plenty of rest over the next several days. We would recommend that you get a pulse oximeter from the pharmacy to keep an eye on your oxygen level. If your oxygen level drops below 91%, you should return to the ED for evaluation. You should return to the ER sooner if you start having any symptoms of shortness of breath or any other new or concerning symptoms. 1. Your COVID-19 screening is positive. That means you do have the coronavirus and you are considered contagious. Your vital signs and oxygen saturation are well enough that you were able to monitor your symptoms at home. Continue to monitor for trouble breathing, new confusion or inability to arouse, bluish lips or face or any of the other symptoms we discussed -if this occurs please return to the emergency room. 2. Please self quarantine over the next 10 days. Inform any persons that you have been in contact with since you started becoming symptomatic that you have tested positive; they should be made aware and take the appropriate steps as needed. 3. May alternate Tylenol and ibuprofen as needed for pain and fever management. 4. The [facility] department will be calling you and following up with you. The [place] COVID 19 Hotline phone number , They are open Friday - Friday 7am - 7pm. Follow up with your primary care provider for re-evaluation and re-testing after the 10 day quarantine and discuss when you should be seen. [facility] [address] [place] [id number] [address] The patient is informed of any results of their evaluation and diagnostic workup and all questions are answered. They are given discharge instructions and return precautions. The patient is stable for discharge. The patient states they understand and agree with the plan and that they will return if their symptoms get worse or if they have any new concerns. The following information is given to patients seen in the emergency department who are being discharged to home. This information is to outline your options for follow-up care. We provide all patients seen in our emergency department with a follow-up referral. The need for follow-up, as well as the timing and circumstances, are variable depending upon the specifics of your emergency department visit. If you don't have a primary care physician on staff, we will provide you with a referral. We always advise you to contact your personal physician following an emergency department visit to inform them of the circumstance of the visit and for follow-up with them and/or the need for any referrals to a consulting specialist. The emergency department will also refer you to a specialist when appropriate. This referral assures that you have the opportunity for follow-up care with a specialist. All of these measure are taken in an effort to provide you with optimal care, which includes your follow-up. Under all circumstances we always encourage you to contact your private physician who remains a resource for coordinating your care. When calling for follow-up care, please make the office aware that this follow-up is from your recent emergency room visit. If for any reason you are refused follow-up, please contact the [facility] Department at and asked to speak to the emergency department charge nurse. <Deborah Rosario E - Last Filed: 05/18/21 11:52> ED HPI GENERAL MEDICAL PROBLEM - General Source of Information: Reports: Patient History Limitations: Reports: No Limitations - History of Present Illness INITIAL COMMENTS - FREE TEXT/NARRATIVE: HISTORY AND PHYSICAL: History of present illness: Patient is a 55-year-old male who presents to the emergency room with complaints of a cough over the past 3 days. He is concerned he may have pneumonia. Patient denies any fever, chills, headache, change in vision, syncope or near syncope. Denies any chest pain, back pain, shortness of breath. Denies any abdominal pain, nausea, vomiting, diarrhea, constipation or dysuria. Has not noted any blood in urine or stool. Patient has been eating and drinking appropriately. No recent travel or sick contacts. Review of systems: As per history of present illness and below otherwise all systems reviewed and negative. Past medical history: As per history of present illness and as reviewed below otherwise noncontributory. Surgical history: As per history of present illness and as reviewed below otherwise noncontributory. Social history: See social history for further information Family history: As per history of present illness and as reviewed below otherwise noncontributory. Physical exam: General: Well developed and well nourished 55-year-old male. Alert and orientated x 3. Nontoxic in appearance and in no acute distress. Vital signs are stable and have been reviewed by me. Nursing notes were reviewed. HEENT: Atraumatic, normocephalic, pupils equal and reactive bilaterally, negative for conjunctival pallor or scleral icterus, mucous membranes moist, TMs normal bilaterally, throat clear, neck supple, nontender, trachea midline. No drooling or trismus noted. No meningeal signs. No hot potato voice noted. Lungs: Diminished to auscultation bilaterally. No wheezes, rales, or rhonchi. Chest nontender. Normal work of breathing, no accessory muscles used. Heart: S1S2, regular rate and rhythm without overt murmur, gallops, or rubs. No JVD. No peripheral edema Abdomen: Soft, nondistended, nontender. Skin: Intact, warm, dry. No lesions or rashes noted. Hematologic: No petechiae or purpra. Mucosa appropriate color and normal nail bed color and refill. Extremities: Atraumatic, moves all extremities per self without difficulty or deficits, negative for cords or calf pain. Neurovascular unremarkable. Neuro: Awake, alert, oriented. Cranial nerves II through XII unremarkable. Cerebellum unremarkable. Motor and sensory unremarkable throughout. Exam nonfocal. Psychiatric: Mood and affect are appropriate. Normal thought process. Answering questions appropriately. Please note that the patient was seen and evaluated during the 2019 SARS-CoV-2 novel coronavirus pandemic period. Community viral transmission is ongoing at time of this encounter and the emergency department is operating under pandemic response procedures. Medical Decision Making: I have talked with the patient about today's findings, in addition to providing specific details for plan of care. Reassessment at the time of disposition demonstrates that the patient is in no acute distress. The patient is stable for discharge, counseling was provided and we discussed in great detail signs and symptoms that would prompt them to return to the Emergency Department. Medication, follow up and supportive care measures were reviewed and discussed. Voices understanding and is agreeable to plan of care. Denies any further questions or concerns at this time. Diagnostics: Chest x-ray, COVID Therapeutics: Prescription: Impression: Plan: 1. You were evaluated today on an emergent basis. Your 2. You can alternate Tylenol and ibuprofen as needed for pain and fever management. 3. We encourage you to follow up with your primary care provider and/or recommended specialist in the next few days for re-evaluation and further care/management. 4. If your symptoms should worsen, new symptoms develop or any of the signs and symptoms we discussed should arise please return to the emergency room or call 911 (if needed). Definitive disposition and diagnosis as appropriate pending reevaluation and review of above. Past Medical History - Past Health History Medical/Surgical History: Denies Medical/Surgical History HEENT History: Reports: Other (See Below) Other HEENT History: wears glasses Cardiovascular History: Reports: None, Other (See Below) Respiratory History: Reports: None Gastrointestinal History: Reports: Other (See Below) Other Gastrointestinal History: epigastric pain Musculoskeletal History: Reports: Fracture Endocrine/Metabolic History: Reports: Obesity/BMI 30+ - Infectious Disease History Infectious Disease History: Reports: Chicken Pox - Past Surgical History Head Surgeries/Procedures: Reports: None Cardiovascular Surgical History: Reports: Other (See Below) Other Cardiovascular Surgeries/Procedures: coronary angiogram GI Surgical History: Reports: Colonoscopy, EGD Musculoskeletal Surgical History: Reports: Other (See Below) Other Musculoskeletal Surgeries/Procedures:: plate in L leg above knee Social & Family History - Family History Family Medical History: No Pertinent Family History - Caffeine Use Caffeine Use: Reports: None Course - Vital Signs Last Recorded V/S: Last Vital Signs Temp 98.1 F 05/14/21 20:59 Pulse 104 H 05/14/21 20:59 Resp 16 05/14/21 20:59 BP 149/66 H 05/14/21 20:59 Pulse Ox 95 05/14/21 20:59 - Orders/Labs/Meds Labs: Laboratory Tests 05/14/21 Range/Units 21:07 Influenza Type A RNA NEGATIVE (NEGATIVE) Influenza Type B RNA NEGATIVE (NEGATIVE) SARS-CoV-2 RNA (PATI) POSITIVE H (NEGATIVE)
[2021-05-14 21:49] LABS: CORONAVIRUS COVID-19 NAA POSITIVE (NEGATIVE); INFLUENZA A NAA NEGATIVE (NEGATIVE); INFLUENZA B NAA NEGATIVE (NEGATIVE)
--- NOTE | 2021-05-14 22:29 | CR ---
Indication: Cough and shortness of breath Technique: Chest 2 views Comparison: Chest x-ray 05/11/2017 Findings/Impression: Cardiovascular and mediastinum: Heart size and vasculature are normal in caliber and appearance. Mediastinum is within normal limits. Lungs and pleural spaces: No pleural effusion or pneumothorax. Hazy bilateral opacities consistent with pneumonia. Bones and soft tissues: No significant findings. Dictated by Valente Varghese MD @ 05/14/2021 10:27:25 PM (Electronically Signed)
== END 2021-05-14 22:41 | disposition home or self-care (01) ==
LOC: MW.ED 20:47
DX: U07.1 COVID-19 (principal); J12.82 Pneumonia due to coronavirus disease 2019; E66.9 Obesity, unspecified; Z68.32 Body mass index [BMI] 32.0-32.9, adult
CPT/HCPCS: 0240U; 71046; 99283

== ENCOUNTER 2022-12-16 00:49 | Emergency (ER) | payer BC ==
[2022-12-16 01:25] LABS: BASOPHILS PERCENT AUTO 0.3 % (0.0-1.5); EOSINOPHILS ABSOLUTE AUTO 0.1 K/uL (0.0-0.7); EOSINOPHILS PERCENT AUTO 1.8 % (0.0-7.0); HEMATOCRIT 51.4 % (38.0-50.0); HEMOGLOBIN 17.4 g/dL (13.0-17.0); LYMPHOCYTES ABSOLUTE AUTO 1.5 K/uL (0.6-2.4); LYMPHOCYTES PERCENT AUTO 22.6 % (16.0-40.0); MEAN CORPUSCULAR HEMOGLOBIN 28.6 pg (27.0-32.0); MEAN CORPUSCULAR HGB CONC 33.9 g/dL (31.0-37.0); MEAN CORPUSCULAR VOLUME 84.5 fL (80.0-98.0); MONOCYTES ABSOLUTE AUTO 0.7 K/uL (0.0-0.8); NEUTROPHILS ABSOLUTE AUTO 4.4 K/uL (1.4-5.7); NEUTROPHILS PERCENT AUTO 65.3 % (48.0-80.0); PLATELET COUNT,PLT 198 K/uL (150-400); RED BLOOD CELL COUNT 6.08 M/uL (4.50-5.90); WHITE BLOOD CELL COUNT,WBC 6.73 K/uL (4.0-11.0)
[2022-12-16 01:52] LABS: A/G RATIO 1.2 (0.9-1.6); ALBUMIN 4.5 g/dL (3.4-5.0); CALCIUM 9.7 mg/dL (8.5-10.1); CARBON DIOXIDE,CO2 23.7 mmol/L (21.0-32.0); CREATININE 1.2 mg/dL (0.8-1.3); EST CRCL DRUG DOSING (CG) 64.92 mL/min; MAGNESIUM 2.1 mg/dL (1.8-2.4); POTASSIUM,K 3.6 mmol/L (3.5-5.1); PROTEIN TOTAL,TP 8.4 g/dL (6.4-8.2)
== END 2022-12-16 02:07 | disposition home or self-care (01) ==
LOC: MW.ED 00:49
DX: R55 Syncope and collapse (principal); E66.9 Obesity, unspecified; Z68.39 Body mass index [BMI] 39.0-39.9, adult
CPT/HCPCS: 36415; 80053; 83735; 84484; 85025; 93005; 93010; 99283; 99284